=== PATIENT | female | born 1995 | race Asian ===

== ENCOUNTER 2016-10-21 22:29 | Emergency (ER) | payer OTHER ==
[2016-10-22 01:00] LABS: Alcohol 261 mg/dL (<10)
--- NOTE | 2016-10-22 01:34 | ED ---
Taran Barreto Rebecca, scribed for Devang Case MD on 10/21/16 at 2259 . Substance Abuse/Use - HPI Summary HPI Summary: Pt is a 21 y/o F BIBA who presents to ED with EtOH intoxication with N/V. Per EMS, the pt was found in an alley outside of her house with EtOH intoxication. All Hx obtained from EMS. Level 5 caveat due to EtOH intoxication. - History Of Current Complaint Chief Complaint: EDSubstanceAbuse Stated Complaint: ETOH Time Seen by Provider: 10/21/16 22:50 Hx Obtained From: EMS Hx From Patient Unobtainable Due To: Other - EtOH intoxication Ingestion History: Type/Name Of Drug - EtOH Overdose Characteristics: Oral Associated Signs And Symptoms: Nausea, Vomiting PMH/Surg Hx/FS Hx/Imm Hx Previously Healthy: No - UNKNOWN - Level 5 caveat due to EtOH intoxication Infectious Disease History: No Infectious Disease History: Denies: Traveled Outside the [place] in Last 30 Days - Family History Known Family History: Positive: Unknown - Unable to obtain - level 5 caveat due to EtOH intoxication - Social History Alcohol Use: Occasionally Substance Use Type: Reports: None Smoking Status (MU): Unknown if Ever Smoked Review of Systems - ROS Summary Review of Systems Summary: Level 5 caveat due to EtOH intoxication. Positive: Vomiting, Nausea Positive: Other - EtOH intoxication All Other Systems Reviewed And Are Negative: No Physical Exam Triage Information Reviewed: Yes Vital Signs On Initial Exam: Initial Vitals Temp Pulse Resp BP Pulse Ox 97.1 F 88 14 102/61 99 10/21/16 22:32 10/21/16 22:32 10/21/16 22:32 10/21/16 22:32 10/21/16 22:32 Vital Signs Reviewed: Yes Appearance: Positive: Well-Appearing Skin: Positive: Warm Head/Face: Positive: Normal Head/Face Inspection Eyes: Positive: DAY ENT: Positive: Hearing grossly normal Neck: Positive: Supple Respiratory/Lung Sounds: Positive: Clear to Auscultation, Breath Sounds Present Cardiovascular: Positive: RRR Abdomen Description: Positive: Nontender, Soft Bowel Sounds: Positive: Present Musculoskeletal: Positive: Strength/ROM Intact Neurological: Positive: Sensory/Motor Intact - Stephon Coma Scale Coma Scale Total: 15 Diagnostics - Vital Signs Vital Signs Temp Pulse Resp BP Pulse Ox 10/21/16 22:32 97.1 F 88 14 102/61 99 - Laboratory Lab Statement: Any lab studies that have been ordered have been reviewed, and results considered in the medical decision making process. Re-Evaluation - Re-Evaluation First Eval Re-Evaluation Time: 06:03 Change: Improved Comment: Discussed D/C plan with the pt. Course/Dx - Course Assessment/Plan: Pt is a 21 y/o F BIBA who presents to ED with EtOH intoxication with N/V. Per EMS, the pt was found in an alley outside of her house with EtOH intoxication. All Hx obtained from EMS. Level 5 caveat due to EtOH intoxication. Serum alcohol of 261. Upon EtOH metabolism, pt will be D/C to home with Dx of alcohol intoxication. She understands and agrees. - Diagnoses Provider Diagnoses: Alcohol intoxication Discharge - Discharge Plan Condition: Stable Disposition: HOME Patient Education Materials: Alcohol Intoxication (ED) Referrals: [facility] [Primary Care Provider] - 3 Days The documentation as recorded by the Taran recio Rebecca accurately reflects the service I personally performed and the decisions made by me, Devang Case MD.
[2016-10-22 06:30] VITALS: BP 102/48
== END 2016-10-22 06:20 | disposition home or self-care (01) ==
LOC: ED 22:29
DX: F10.129 Alcohol abuse with intoxication, unspecified (principal); R11.2 Nausea with vomiting, unspecified
CPT/HCPCS: 36415; 80320; 84702; 99284; G0480